=== PATIENT | female | born 1980 | race Asian ===

== ENCOUNTER 2018-01-11 10:51 | Emergency (ER) | payer BC, OTHER ==
[~2018-01-11] VITALS: Ht 154.9 cm; Wt 55.1 kg
[~2018-01-11 10:51] MED LIST: IBUP-238 PO; Z.0.NO CURRENT MEDS
[2018-01-11 11:07] VITALS: BP 99/43; PULSE 85; RESP 16; TEMP 98.3; O2SAT 100
[2018-01-11] MEDS ORDERED: NAPR500T2 PO (11:10)
--- NOTE | 2018-01-11 11:16 | PD ---
HPI Chief Complaint: Chest Pain Time Seen by Provider: 11:06 Travel History International Travel<30 days: No Contact w/Intl Traveler<30days: No Traveled to known affect area: No History of Present Illness HPI This 37-year-old female is complaining of chest pain. He says he been having this pain for about 3 weeks. There is a substernal pain. It is aggravated by deep breathing. She described it is quite sharp and stabbing in nature. She says it has been constant over this period of time but does get worse when she takes a deep breath. She was seen in the ER with costochondritis in 2013. She has no history of hypertension or diabetes. Her mother has asthma and her father does have coronary artery disease. She has been a smoker in the past. She stopped about 2 weeks ago. PFS Past Medical History Diminished Hearing: No Ulcer: Yes ?: Not : 3 Para: 4 Miscarriage: 1 Past Surgical History Hysterectomy: Yes Oral Surgery: Yes Other Surgery: Yes (LUMPECTOMY RIGHT BREAST 03/20) Social History Alcohol Use: No Tobacco Use: Yes (08/17 PPD) Substance Use: No Allergies-Medications (Allergen,Severity, Reaction): Uncoded Allergies: ANTIBIOT (Allergy, Unknown, UNKNOWN REACTION / UNKNOWN ANTIBIOTIC AGENT, ) Reported Meds & Prescriptions Reported Meds & Active Scripts Active Reported Naproxen 500 Mg Tab 500 Mg PO BID Review of Systems General / Constitutional: No: Fever, Chills Eyes: No: Diploplia, Blurred Vision HENT: No: Headaches Cardiovascular: Positive: Chest Pain or Discomfort, No: Palpitations, Irregular Rhythm Respiratory: No: Cough, Shortness of Breath Genitourinary: No: Urgency, Frequency Musculoskeletal: No: Myalgias, Arthralgias Skin: No Rash, No Itching Neurologic: No: Weakness Physical Exam Narrative GENERAL: Well-developed female SKIN: Focused skin assessment warm/dry. HEAD: Atraumatic. Normocephalic. EYES: Pupils equal and round. No scleral icterus. No injection or drainage. ENT: No nasal bleeding or discharge. Mucous membranes pink and moist. NECK: Trachea midline. No JVD. CARDIOVASCULAR: Regular rate and rhythm. No murmur appreciated. Tenderness over the lower sternal area RESPIRATORY: No accessory muscle use. Clear to auscultation. Breath sounds equal bilaterally. GASTROINTESTINAL: Abdomen soft, non-tender, nondistended. Hepatic and splenic margins not palpable. MUSCULOSKELETAL: No obvious deformities. No clubbing. No cyanosis. No edema. NEUROLOGICAL: Awake and alert. No obvious cranial nerve deficits. Motor grossly within normal limits. Normal speech. PSYCHIATRIC: Appropriate mood and affect; insight and judgment normal. Data Data Last Documented VS Vital Signs Date Time Temp Pulse Resp B/P (MAP) Pulse Ox O2 Delivery O2 Flow Rate FiO2 01/11/18 12:01 77 16 102/57 (72) 100 Room Air 01/11/18 11:07 98.3 Orders Orders Electrocardiogram (01/11/18 11:13) Complete Blood Count With Diff (01/11/18 11:13) Basic Metabolic Panel (Bmp) (01/11/18 11:13) Troponin I (01/11/18 11:13) D-Dimer (01/11/18 11:13) Chest, Pa & Lat (01/11/18 11:41) Labs Laboratory Tests Test 01/11/18 11:17 White Blood Count 6.9 TH/MM3 Red Blood Count 5.07 MIL/MM3 Hemoglobin 14.3 GM/DL Hematocrit 42.8 % Mean Corpuscular Volume 84.3 FL Mean Corpuscular Hemoglobin 28.1 PG Mean Corpuscular Hemoglobin Concent 33.4 % Red Cell Distribution Width 12.3 % Platelet Count 306 TH/MM3 Mean Platelet Volume 8.0 FL Neutrophils (%) (Auto) 57.2 % Lymphocytes (%) (Auto) 28.2 % Monocytes (%) (Auto) 4.8 % Eosinophils (%) (Auto) 8.9 % Basophils (%) (Auto) 0.9 % Neutrophils # (Auto) 4.0 TH/MM3 Lymphocytes # (Auto) 1.9 TH/MM3 Monocytes # (Auto) 0.3 TH/MM3 Eosinophils # (Auto) 0.6 TH/MM3 Basophils # (Auto) 0.1 TH/MM3 CBC Comment DIFF FINAL Differential Comment D-Dimer Quantitative (PE/DVT) 0.34 MG/L FEU Blood Urea Nitrogen 10 MG/DL Creatinine 0.80 MG/DL Random Glucose 108 MG/DL Calcium Level 8.6 MG/DL Sodium Level 140 MEQ/L Potassium Level 4.0 MEQ/L Chloride Level 106 MEQ/L Carbon Dioxide Level 26.3 MEQ/L Anion Gap 8 MEQ/L Estimat Glomerular Filtration Rate 82 ML/MIN Troponin I LESS THAN 0.02 NG/ML MDM Medical Decision Making Medical Screen Exam Complete: Yes Emergency Medical Condition: Yes Medical Record Reviewed: Yes Differential Diagnosis Differential includes coronary artery disease, chest wall pain, costochondritis Narrative Course EKG shows normal sinus rhythm. Troponin is normal. This pain has been ongoing for several weeks and I do not think represents coronary artery disease. She has not had much relief with Naprosyn. I will prescribe some Ultram to see if this will help. She does not do well narcotics Diagnosis Primary Impression: Chest wall pain Scripts Meloxicam (Meloxicam) 7.5 Mg Tab 7.5 MG PO DAILY for Arthritis Pain for 14 Days, #14 TAB 0 Refills Prov: Micky Navas MD 01/11/18 Disposition: 01 DISCHARGE HOME Condition: Stable Micky Navas MD January 11, 2018 11:16
[2018-01-11 11:23] LABS: BASOPHIL # 0.1 TH/MM3 (0-0.2); BASOPHIL % 0.9 % (0.0-2.0); EOSINOPHIL # 0.6 TH/MM3 (0-0.4); EOSINOPHIL % 8.9 % (0.0-4.0); HEMATOCRIT 42.8 % (35.0-46.0); HEMOGLOBIN 14.3 GM/DL (11.6-15.3); LYMPH % 28.2 % (9.0-44.0); LYMPHOCYTE # 1.9 TH/MM3 (1.0-4.8); MEAN CELL VOLUME 84.3 FL (80.0-100.0); MEAN CORPUSCULAR HEMOGLOBIN 28.1 PG (27.0-34.0); MEAN CORPUSCULAR HGB CONC 33.4 % (32.0-36.0); MONO % 4.8 % (0.0-8.0); MONOCYTE # 0.3 TH/MM3 (0-0.9); NEUT % 57.2 % (16.0-70.0); PLATELET COUNT 306 TH/MM3 (150-450); RED BLOOD COUNT 5.07 MIL/MM3 (4.00-5.30); RED CELL DISTRIBUTION WIDTH 12.3 % (11.6-17.2); WHITE BLOOD COUNT 6.9 TH/MM3 (4.0-11.0)
[2018-01-11 11:40] LABS: CHLORIDE 106 MEQ/L (98-107); SODIUM (NA) 140 MEQ/L (136-145)
[2018-01-11 11:43] LABS: BICARBONATE 26.3 MEQ/L (21.0-32.0); BLOOD UREA NITROGEN 10 MG/DL (7-18); CALCIUM 8.6 MG/DL (8.5-10.1); GLUCOSE,RANDOM 108 MG/DL (74-106)
[2018-01-11 11:46] LABS: GLOMERULAR FILTRATION RATE 82 ML/MIN (>89)
[2018-01-11 12:01] VITALS: BP 102/57; PULSE 77; RESP 16; O2SAT 100
--- NOTE | 2018-01-11 12:25 | RADRPT ---
EXAM DATE: 01/11/2018 12:18 PM EDT AGE/SEX: 37 years / Female INDICATIONS: Chest pain, short of breath. CLINICAL DATA: This is the patient's initial encounter. Patient reports that signs and symptoms have been present for 3 weeks and indicates a pain score of 6/10. MEDICAL/SURGICAL HISTORY: None. . cyst removed from right breast COMPARISON: No prior exams available for comparison. FINDINGS: PA and lateral views of the chest demonstrate the lungs to be symmetrically aerated without evidence of mass, infiltrate or effusion. The cardiomediastinal contours are unremarkable. Osseous structures are intact. CONCLUSION: No active disease. Electronically signed by: Daniel Gonzalez MD 01/11/2018 12:23 PM EDT
[2018-01-11 12:55] LABS: TROPONIN I LESS THAN 0.02 NG/ML (0.02-0.05)
[2018-01-11] MEDS ORDERED: MELO7.5T27 PO (13:16)
--- NOTE | 2018-01-11 15:12 | EKG ---
Date Performed: 01/11/2018 Time Performed: 10:58:57 PTAGE: 37 years EKG: Sinus rhythm NONSPECIFIC T-WAVE ABNORMALITY BORDERLINE ECG Since the PREVIOUS TRACING , no significant change noted PREVIOUS TRACIN05/16/2013 09.07 DOCTOR: Efrain Mitchell Interpretating Date/Time 01/11/2018 15:12:04
== END 2018-01-11 13:32 | disposition home or self-care (01) ==
LOC: PHED 10:51
DX: R07.89 Other chest pain (principal); R94.31 Abnormal electrocardiogram [ECG] [EKG]; F17.200 Nicotine dependence, unspecified, uncomplicated
CPT/HCPCS: 71046; 80048; 84484; 85025; 85379; 93005